=== PATIENT | male | born 1970 | race Two or more races ===

== ENCOUNTER 2021-04-26 19:58 | Inpatient (IN) | payer MEDICAID ==
[~2021-04-26] VITALS: Ht 182.9 cm; Wt 123.8 kg
[2021-04-26] MEDS ORDERED: FUROSEMIDE 100MG/10ML VIAL IVP ONE (21:15)
[2021-04-26] MEDS ORDERED: NITROGLYCERIN OINT 1GM/INCH UDPKT TD ONE (21:15)
[2021-04-26 21:26] LABS: BASOPHILS % 0.6 % (0.0-2.0); HEMATOCRIT. 31.8 % (42.0-52.0); HEMOGLOBIN. 10.9 g/dL (14.0-18.0); LYMPHOCYTES % 15.7 % (20.0-50.0); MEAN CORPUSCULAR HEMOGLOBIN 29.1 pg (28.0-32.0); MEAN PLATELET VOLUME 7.5 fl (7.4-10.4); MONOCYTES % 11.2 % (2.0-8.0); NEUTROPHILS % 71.5 % (40.0-76.0); PLATELET 270 x1000/uL (130-400); RED BLOOD CELL COUNT 3.74 mill/uL (4.7-6.1); RED CELL DISTRIBUTION WIDTH 14.3 % (11.6-14.6)
[2021-04-26 21:30] LABS: CHLORIDE 103 mEq/L (98-107)
[2021-04-26] MEDS ORDERED: KCL 20MEQ/100ML PREMIX 100 ML IV NR (22:30)
[2021-04-26] MEDS ORDERED: POTASSIUM CHLORIDE 20MEQ TABLET SR PO ONE (22:30)
[2021-04-26] MEDS ORDERED: LISINOPRIL 20MG TABLET PO ONE (23:00)
[2021-04-27 08:40] VITALS: BP 161/92
[2021-04-27] MEDS: ASPIRIN 81MG TABLET PO SCH (09:22)
[2021-04-27] MEDS: ENOXAPARIN 30MG/0.3ML SYR SUBCUT SCH ×2 (09:25→20:45)
[2021-04-27] MEDS ORDERED: DIPHENHYDRAMINE 50MG/ML VIAL IV PRN (10:15)
[2021-04-27] MEDS ORDERED: ONDANSETRON HCL 4MG/2ML INJ IV PRN (10:15)
[2021-04-27] MEDS ORDERED: MAGNESIUM/ALUMINUM HYDROXIDE/SIMETHICONE 30ML UDC PO PRN (10:15)
[2021-04-27] MEDS ORDERED: ACETAMINOPHEN 325MG TABLET PO PRN (10:15)
[2021-04-27] MEDS ORDERED: ACETAMINOPHEN 650MG/20.3ML UDC GT PRN ×2 (10:15)
[2021-04-27] MEDS: FUROSEMIDE 40MG/4ML VIAL IVP SCH (10:29)
[2021-04-27 11:03] VITALS: BP 161/92
[2021-04-27] MEDS ORDERED: NALOXONE HCL 0.4MG/ML VIAL IV PRN (11:15)
[2021-04-27] MEDS: POTASSIUM CHLORIDE 20MEQ TABLET SR PO SCH (11:47)
[2021-04-27 12:00] VITALS: BP 160/102
[2021-04-27 12:13] LABS: T4 FREE 1.25 ng/dL (0.76-1.46)
[2021-04-27 13:15] LABS: CHLORIDE 105 mEq/L (98-107)
[2021-04-27] MEDS ORDERED: POTASSIUM CHLORIDE 20MEQ TABLET SR PO NR ×2 (14:30→20:30)
[2021-04-27] MEDS ORDERED: PNEUMOCOCCAL 23-VAL P-SAC VAC 0.5 ML IM ONE (15:00)
[2021-04-27] MEDS: CLONIDINE 0.1MG TABLET PO PRN (15:34)
[2021-04-27 16:00] VITALS: BP 179/102
[2021-04-27 17:03] LABS: CREATINE KINASE 957 IU/L (39-308)
[2021-04-27 17:13] LABS: CLARITY URINE CLEAR (CLEAR); COLOR URINE YELLOW (YELLOW); KETONES URINE NEGATIVE (NEGATIVE); LEUKOCYTE ESTERASE URINE NEGATIVE (NEGATIVE); NITRITE URINE NEGATIVE (NEGATIVE); OCCULT BLOOD URINE NEGATIVE (NEGATIVE); PH URINE 7.5 (4.5-8.0); PROTEIN URINE NEGATIVE (NEGATIVE); SPECIFIC GRAVITY URINE 1.007 (1.005-1.030); UROBILINOGEN URINE 0.2 E.U./dL (0.2-1.0)
[2021-04-27 17:46] LABS: *AMPHETAMINES SCREEN URINE NEGATIVE (NEGATIVE); *BARBITURATES SCREEN URINE NEGATIVE (NEGATIVE); *BENZODIAZEPINES SCREEN URINE NEGATIVE (NEGATIVE); *COCAINE SCREEN URINE NEGATIVE (NEGATIVE); METHADONE URINE SCREEN NEGATIVE (NEGATIVE)
[2021-04-27 17:47] LABS: CANNABINOID URINE SCREEN NEGATIVE (NEGATIVE); OPIATES URINE SCREEN NEGATIVE (NEGATIVE); PHENCYCLIDINE URINE SCREEN NEGATIVE (NEGATIVE)
[2021-04-27 18:18] VITALS: BP 147/85
[2021-04-27 20:00] VITALS: BP 142/81
[2021-04-27] MEDS ORDERED: IOHEXOL-350 100 ML BOTTLE ONE (20:41)
[2021-04-28] VITALS (7 sets, daily range): BP systolic 141–165; BP diastolic 82–110
[2021-04-28 01:04] LABS: CREATINE KINASE 777 IU/L (39-308)
[2021-04-28 01:05] LABS: CREATINE KINASE MB FRACTION 7.9 ng/mL (0.5-3.6)
[2021-04-28 06:22] LABS: BASOPHILS % 0.4 % (0.0-2.0); EOSINOPHILS % 2.5 % (0.0-5.0); HEMATOCRIT. 34.5 % (42.0-52.0); HEMOGLOBIN. 11.3 g/dL (14.0-18.0); LYMPHOCYTES % 25.4 % (20.0-50.0); MEAN CORPUSCULAR HEMOGLOBIN 28.4 pg (28.0-32.0); MEAN CORPUSCULAR VOLUME 86.5 fL (80.0-94.0); MONOCYTES % 13.1 % (2.0-8.0); NEUTROPHILS % 58.6 % (40.0-76.0); PLATELET 274 x1000/uL (130-400); RED BLOOD CELL COUNT 3.98 mill/uL (4.7-6.1); RED CELL DISTRIBUTION WIDTH 14.3 % (11.6-14.6)
[2021-04-28 06:54] LABS: CHLORIDE 101 mEq/L (98-107)
[2021-04-28 07:07] LABS: CREATINE KINASE 729 IU/L (39-308); HDL CHOLESTEROL 37 mg/dL (40-59); LDL CHOLESTEROL 77 mg/dL (5-100)
[2021-04-28 07:12] LABS: CREATINE KINASE MB FRACTION 8.1 ng/mL (0.5-3.6)
[2021-04-28] MEDS: ENOXAPARIN 30MG/0.3ML SYR SUBCUT SCH ×2 (08:44→20:12)
[2021-04-28] MEDS: POTASSIUM CHLORIDE 20MEQ TABLET SR PO SCH (08:44)
[2021-04-28] MEDS: ASPIRIN 81MG TABLET PO SCH (08:44)
[2021-04-28] MEDS: FUROSEMIDE 40MG/4ML VIAL IVP SCH (08:45)
[2021-04-28] MEDS ORDERED: FUROSEMIDE 40MG/4ML VIAL IV SCH (09:00)
[2021-04-28] MEDS ORDERED: IOHEXOL-350 100 ML BOTTLE ONE (11:13)
[2021-04-28] MEDS ORDERED: FUROSEMIDE 40MG/4ML VIAL IVP SCH (11:15)
[2021-04-28] MEDS ORDERED: POTASSIUM CHLORIDE 20MEQ TABLET SR PO SCH (11:15)
[2021-04-28] MEDS ORDERED: POTASSIUM CHLORIDE INJ 40 MEQ in DEXT 5% WATER 250 ML IV SCH (12:00)
[2021-04-28] MEDS: HYDROCODONE/ACETAMINOPHEN 5/325MG TABLET PO PRN (20:12)
[2021-04-28] MEDS: CLONIDINE 0.1MG TABLET PO PRN (20:12)
[2021-04-29] MEDS: HYDROCODONE/ACETAMINOPHEN 5/325MG TABLET PO PRN ×2 (03:58→20:08)
[2021-04-29] MEDS: CLONIDINE 0.1MG TABLET PO PRN ×2 (03:59→13:44)
[2021-04-29 04:00] VITALS: BP 147/95
[2021-04-29 08:00] VITALS: BP 159/99
[2021-04-29] MEDS: POTASSIUM CHLORIDE 20MEQ TABLET SR PO SCH (09:22)
[2021-04-29] MEDS: ENOXAPARIN 30MG/0.3ML SYR SUBCUT SCH ×2 (09:22→20:07)
[2021-04-29] MEDS: FUROSEMIDE 40MG/4ML VIAL IVP SCH (09:23)
[2021-04-29] MEDS: ASPIRIN 81MG TABLET PO SCH (09:23)
[2021-04-29] MEDS: BUMETANIDE 1MG TABLET PO SCH ×2 (09:23→09:46)
[2021-04-29 10:59] LABS: CHLORIDE 104 mEq/L (98-107)
[2021-04-29 12:00] VITALS: BP 164/109
[2021-04-29] MEDS ORDERED: FURO-151 MT (15:57)
[2021-04-29] MEDS ORDERED: HYDR-4134 MT (15:57)
[2021-04-29 16:00] VITALS: BP 152/111
[2021-04-29 20:00] VITALS: BP 163/97
[2021-04-29] MEDS: HYDRALAZINE HCL 25MG TABLET PO SCH (20:08)
[2021-04-29] MEDS ORDERED: MAGNESIUM 4 G PREMIX 100 ML IV NR (23:30)
[2021-04-30] VITALS: BP 184/99
[2021-04-30] MEDS: CLONIDINE 0.1MG TABLET PO PRN ×2 (00:48→21:37)
[2021-04-30 04:00] VITALS: BP 150/85
[2021-04-30] MEDS: POTASSIUM CHLORIDE 20MEQ TABLET SR PO SCH (08:50)
[2021-04-30] MEDS: FUROSEMIDE 40MG/4ML VIAL IVP SCH (08:50)
[2021-04-30] MEDS: ENOXAPARIN 30MG/0.3ML SYR SUBCUT SCH ×2 (08:51→21:34)
[2021-04-30] MEDS: BUMETANIDE 1MG TABLET PO SCH (08:51)
[2021-04-30] MEDS: ASPIRIN 81MG TABLET PO SCH (08:51)
[2021-04-30] MEDS: HYDRALAZINE HCL 25MG TABLET PO SCH ×2 (08:52→21:35)
[2021-04-30 09:32] VITALS: BP 152/83
[2021-04-30 20:00] VITALS: BP 170/110
[2021-04-30 20:41] LABS: CHLORIDE 103 mEq/L (98-107)
[2021-05-01] VITALS: BP 129/66
[2021-05-01 04:00] VITALS: BP 152/89
[2021-05-01 08:00] VITALS: BP 158/92
[2021-05-01] MEDS: FUROSEMIDE 40MG/4ML VIAL IVP SCH (09:58)
[2021-05-01] MEDS: POTASSIUM CHLORIDE 20MEQ TABLET SR PO SCH (09:58)
[2021-05-01] MEDS: ASPIRIN 81MG TABLET PO SCH (09:58)
[2021-05-01] MEDS: BUMETANIDE 1MG TABLET PO SCH (09:58)
[2021-05-01] MEDS: HYDRALAZINE HCL 25MG TABLET PO SCH (09:59)
[2021-05-01] MEDS: ENOXAPARIN 30MG/0.3ML SYR SUBCUT SCH (09:59)
== END 2021-05-01 10:35 | disposition home or self-care (01) | DRG 199 ==
LOC: ER 19:58 → EDBD 19:58 → MICUSO 23:42 → 8WST 04-27 07:15
PROVIDERS: ADMIT Family Medicine; ATTEND Family Medicine
DX: I16.0 Hypertensive urgency (principal); I50.31 Acute diastolic (congestive) heart failure; E44.0 Moderate protein-calorie malnutrition; D64.9 Anemia, unspecified; E66.01 Morbid (severe) obesity due to excess calories; E87.6 Hypokalemia; E11.9 Type 2 diabetes mellitus without complications; I11.0 Hypertensive heart disease with heart failure; Z87.891 Personal history of nicotine dependence; Z88.2 Allergy status to sulfonamides; Z91.14 Patient's other noncompliance with medication regimen; Z91.19 Patient's noncompliance with other medical treatment and regimen; Z68.37 Body mass index [BMI] 37.0-37.9, adult; Z79.899 Other long term (current) drug therapy
CPT/HCPCS: 36415; 71045; 71275; 80048; 80053; 80061; 80305; 81003; 82550; 82553; 83036; 83735; 83880; 84439; 84443; 84484; 85025; 85379; 90732; 93005; 93306; 93970; 99285; C1893; J1650; J1940; J3475; J3480; J7060; Q9967